=== PATIENT | female | born 1950 | race Caucasian/White ===

== ENCOUNTER → 2024-02-15 | Outpatient (REF) | payer MEDICARE, OTHER, SELFPAY | LOC: DHSLP | PROVIDERS: ATTENDING PHYSICIAN Internal Medicine Critical Care Medicine | DX: G47.33 Obstructive sleep apnea (adult) (pediatric) (principal) | CPT/HCPCS: 95800 ==

== ENCOUNTER → 2025-01-27 14:39 | Outpatient (REF) | payer MEDICARE, OTHER, SELFPAY | LOC: DHSLP 14:39 | PROVIDERS: ATTENDING PHYSICIAN Internal Medicine Critical Care Medicine | DX: G47.33 Obstructive sleep apnea (adult) (pediatric) (principal) | CPT/HCPCS: 95800 ==